=== PATIENT | male | born 1985 | race Caucasian/White ===

== ENCOUNTER 2020-10-31 14:46 | Emergency (ER) | payer BC, SELFPAY ==
[2020-10-31 14:55] VITALS: BP 120/80; PULSE 67; RESP 16; TEMP 36.6; O2SAT 99
--- NOTE | 2020-10-31 15:37 | ED.DENTAL ---
HPI - Dental/Oral General Chief complaint: Dental/Oral Stated complaint: tooth pain Time Seen by Provider: 10/31/20 15:03 Source: patient Mode of arrival: ambulatory Limitations: no limitations History of Present Illness HPI Narrative: Patient presents with moderate pain in tooth 14. He appears to have an abscessed tooth there. He states he has been having pain there for several days. After a few days he gets better and it resolves. Because of this he has not done anything about this. The pain has been ongoing now, sharp, moderately severe for the last several days. Ibuprofen has helped him to feel better. Onset (ago): week(s) Duration: intermittent Severity: moderate Severity scale (1-10): 5 Relieving factors: NSAIDs Exacerbating factors: chewing Associated symptoms: gum swelling Treatment prior to arrival: oral analgesic Related Data Allergies Allergy/AdvReac Type Severity Reaction Status Date / Time No Known Allergies Allergy Verified 10/31/20 15:14 Review of Systems Constitutional: Constitutional: Reports no additional constitutional complaints Eyes: Eyes: Reports no additional eye complaints ENT: Reports system reviewed and no additional complaints, except as documented Cardiovascular: Cardiovascular: Reports no additional cardiovascular complaints Respiratory: Respiratory: Reports no additional respiratory complaints Gastrointestinal: Gastrointestinal: Reports no additional gastrointestinal complaints Genitourinary: Genitourinary: Reports no additional male genitourinary complaints Musculoskeletal: Musculoskeletal: Reports no additional musculoskeletal complaints Integumentary/Breasts: Skin/Breast: Reports system reviewed and no additional complaints, except as docu Neurologic: Reports system reviewed and no additional complaints, except as documented Psychiatric: Psychiatric: Reports no additional psychiatric complaints Endocrine: Endocrine: Reports no additional endocrine complaints Hematologic/Lymphatic: Hematologic/Lymphatic: Reports no additional hematologic/lymphatic complaints Allergic/Immunologic: Allergic/Immunologic: Reports no additional allergic/immunologic complaints [facility] Past Medical History Medical History (Updated 11/01/20 @ 04:10 by Kyle Thayer MD) No significant medical problems Surgical History Surgical History (Updated 11/01/20 @ 04:10 by Kyle Thayer MD) No significant past surgical history Family History Family History (Updated 11/01/20 @ 04:13 by Kyle Thayer MD) Father No problems noted. Mother Alcoholic Bipolar 1 disorder Social History Social History (Updated 11/01/20 @ 04:13 by Kyle Thayer MD) Smoking packs per day: 1 Smoking cigarettes per day: 20.0 Smoking status: Current every day smoker Tobacco type: cigarettes Alcohol intake: never Exam Const: General: healthy appearing and no acute distress Limitations: no limitations HENMT: Head: normal to inspection Ears: external ears normal Mouth: Yes Normal oral and palatal mucosa present and Yes Abnormal oral and palatal mucosa present Throat: posterior oropharynx normal Other: Tooth #14 appears to be abscessed with a clear distinct red ring around the tooth. Eyes: Conjunctivae: conjunctivae normal Neck: Neck: normal visual inspection Chest: Chest palpation & inspection: normal inspection of the chest Resp: Effort & Inspection: normal respiratory effort Auscultation: clear to auscultation bilaterally Cardio: Rate: regular rate Rhythm: regular rhythm GI: Auscultation: normal bowel sounds (soft non tender) Skin: General skin exam: normal color Neuro: General: patient oriented x3 Extrem: General: normal to inspection Psych: Appearance: grossly normal Mental Status: mental status grossly normal Thought content: Yes Normal thought content present Course Course Emergency Course: He was examined and sent home with a script for amoxicillin 500mg one q
[2020-10-31 15:48] VITALS: PULSE 65; O2SAT 100
== END 2020-10-31 15:54 | disposition home or self-care (01) ==
PROVIDERS: Emergency Provider Emergency Medicine
DX: K08.89 Other specified disorders of teeth and supporting structures (principal); K04.7 Periapical abscess without sinus
CPT/HCPCS: 99283